=== PATIENT | female | born 1980 | race Caucasian/White ===

== ENCOUNTER → 2024-04-30 12:15 | Outpatient (CLI) | payer OTHER, SELFPAY ==
[2024-05-02 13:11] LABS: Candida species Positive (Negative); Gardnerella vaginalis Negative (Negative); Trichomoas vaginalis Negative (Negative)
== END ==
PROVIDERS: Visit Provider Obstetrics & Gynecology
DX: N76.1 Subacute and chronic vaginitis (principal)
CPT/HCPCS: 87480; 87510; 87660

== ENCOUNTER → 2024-05-08 12:35 | Outpatient (CLI) | payer OTHER, SELFPAY ==
--- NOTE | 2024-05-08 12:46 | DI.RAD.S_ITS ---
PROCEDURE: XR CERVICAL SPINE 2V OR 3V INDICATIONS: BACK NECK PAIN TECHNIQUE: Three views (s) of the cervical spine were acquired. COMPARISON: None. FINDINGS: Cervical spine curvature and alignment: Normal. Bones: There are no osseous abnormalities. Disc spaces: Normal in height without significant degeneration. Soft tissues: No soft tissue swelling, calcification or mass. IMPRESSION: Normal cervical spine. Dictated by: Andrea Sebastian M.D. on 05/09/2024 at 10:00 Approved by: Andrea Sebastian M.D. on 05/09/2024 at 10:00
--- NOTE | 2024-05-08 12:46 | DI.RAD.S_ITS ---
PROCEDURE: XR THORACIC SPINE 3V INDICATIONS: BACK NECK PAIN TECHNIQUE: 3 views of the thoracic spine were acquired. COMPARISON: None. FINDINGS: Thoracic spine curvature and alignment: Normal. Bones: There are no osseous abnormalities. Disc spaces: Normal in height without significant degeneration. Intervertebral foramen: Grossly normal in width. Soft tissues: No soft tissue swelling, calcification or mass. IMPRESSION: Normal thoracic spine Dictated by: Andrea Sebastian M.D. on 05/09/2024 at 10:03 Approved by: Andrea Sebastian M.D. on 05/09/2024 at 10:03
--- NOTE | 2024-05-08 12:46 | DI.RAD.S_ITS ---
PROCEDURE: XR LUMBAR SPINE 2-3V INDICATIONS: BACK NECK PAIN TECHNIQUE: 3 views of the lumbar spine were acquired. COMPARISON: None. FINDINGS: Lumbar spine curvature and alignment: Normal. Bones: There are no osseous abnormalities. Disc spaces: Normal in height without significant degeneration. Mild L5-S1 degenerative facet disease noted Intervertebral foramen: Grossly normal in width. Soft tissues: No soft tissue swelling, calcification or mass. IMPRESSION: Mild L5-S1 degenerative facet disease Dictated by: Andrea Sebastian M.D. on 05/09/2024 at 10:01 Approved by: Andrea Sebastian M.D. on 05/09/2024 at 10:01
== END ==
LOC: RAD 12:44
PROVIDERS: Referring Provider Naturopath; Visit Provider Naturopath
DX: M47.817 Spondylosis without myelopathy or radiculopathy, lumbosacral region (principal); G43.909 Migraine, unspecified, not intractable, without status migrainosus; M40.30 Flatback syndrome, site unspecified; C50.919 Malignant neoplasm of unspecified site of unspecified female breast; M54.2 Cervicalgia; M54.6 Pain in thoracic spine; M25.511 Pain in right shoulder; M25.512 Pain in left shoulder
CPT/HCPCS: 72040; 72072; 72100

== ENCOUNTER 2024-08-17 07:25 | Day surgery (SDC) | payer OTHER, SELFPAY ==
[2024-08-10 12:33] VITALS: BMI 22.8
--- NOTE | 2024-08-17 | PATH_ITS ---
[facility] Accession Number: [id number] No. of containers..01 Tissue . 01 Material submitted: . endometrium - ENDOMETRIAL CURETTINGS . 01 Diagnosis: ENDOMERIAL CURETTINGS: Polypoid fragments of weakly proliferative endometrial tissue; negative for endometrioid intraepithelial neoplasia or malignancy. [facility] 08/21/2024 1238 Local . 01 Electronically signed: . Roselia Jackson MD, Pathologist NPI- [id number] . 01 Gross description: . Received in formalin, labeled with two patient identifiers and endometrial curettings, are multiple estrella soft tissue fragments admixed with mucoid material received on fragmented Telfa paper, aggregating to 2.0 x 0.9 x 0.2 cm. Filtered and submitted in cassette A1. ([id number]) /[facility] 08/18/2024 1109 Local . 01 Pathologist provided ICD-10: N93.9 . 01 CPT . 982144 Specimen Comment: A courtesy copy of this report has been sent to [facility] Pathology Performed at: [address], [place], [place] [id number] MD Juan Francisco Esquivel MD Phone: [phone]
[2024-08-17] MEDS: LACTATED RINGERS 1,000 ML 42 ML IV (07:44)
[2024-08-17 07:48] VITALS: BMI 22.8
[2024-08-17 07:56] VITALS: BP 110/55; PULSE 68; RESP 18; TEMP 36.3; O2SAT 97
[2024-08-17] MEDS: ACETAMINOPHEN 325 MG TABLET 975 MG PO (08:01)
--- NOTE | 2024-08-17 08:18 | PM.PREOP ---
Pre-operative Note Interval Note History & Physical reviewed/Exam performed by Physician: Yes Changes to H&P: No H&P completed within 30 days and has changed as indicated here:: 08/01/24; pt no longer desires placement of LNG-IUD per recommendations of her primary oncology team, operative consent modified to hysteroscopy with D&C only ASA Class (for procedural sedation): II
--- NOTE | 2024-08-17 09:08 | PM.OP.1 ---
Operative Date/Time/Diagnoses Date of procedure: 08/17/24 Time of procedure: 09:08 Pre-op diagnosis: AUB Post-op diagnosis: same Procedure & Clinicians Procedure: hysteroscopy, dilation and curettage Same procedure as scheduled: Yes Indications: AUB on SERM therapy Surgeon: Michelle Zavala Click Yes if Unassisted: Yes Anesthesia Type: General Operative Notes Findings: normal external female genitalia, cervix; thickened anterior endometrium, bilateral ostia visualized Closure Type: not applicable Specimen(s): other (endometrial currettings ) Estimated Blood Loss (mL): 1 Procedure in detail: Pt was taken to the operating room, transferred to OR table and anesthesia was induced with placement of LMA.? Pt had her legs placed in Sudhir stirrups and an exam under anesthesia was performed. The patient was prepped and draped in a sterile fashion.? A time out was performed. ?The bladder was emptied via straight catheter in sterile fashion.? A sterile speculum was inserted into the vagina.? The cervix was visualized and grasped anteriorly using a single tooth tenaculum.? The uterus sounded to 8cm and the cervical os was serially dilated using Arcos dilators up to 17f to allow for passage of the hysteroscope.? The 5mm 30 degree hysteroscope was then inserted into the uterus with findings as noted.? The hysteroscope was removed and the uterus was sharply curetted until a gritty texture was noted throughout.? The tenaculum was removed and hemostasis was noted at insertion sites.? The speculum was removed and hemostasis was again noted to be excellent.? The patient then had her legs taken out of stirrups.? The patient tolerated the procedure well and without difficulty.? The patient was awakened from anesthesia and taken to PACU in stable condition. Complications: none Post-operative Condition: stable Disposition: PACU Plan for aftercare: anticipate dc to home pending routine postoperative recovery
--- NOTE | 2024-08-17 09:12 | SUR.OPER ---
OLD IN APPEARANCE BRUISING NOTED TO LEFT THIGH X2. YELLOW IN COLOR
[2024-08-17 09:16] VITALS: BP 90/49; PULSE 69; RESP 14; TEMP 36.1; O2SAT 93
[2024-08-17 09:21] VITALS: BP 86/50; PULSE 72; RESP 16; O2SAT 97
[2024-08-17 09:26] VITALS: BP 90/55; PULSE 67; RESP 13; O2SAT 95
[2024-08-17 09:36] VITALS: BP 90/49; PULSE 62; RESP 14; TEMP 36.1; O2SAT 98
[2024-08-17] MEDS: TRAMADOL 50 MG TABLET PO (10:10)
== END 2024-08-17 11:08 | disposition home or self-care (01) ==
PROVIDERS: Referring Provider Obstetrics & Gynecology; Visit Provider Obstetrics & Gynecology
PROC: 0UDB8ZZ Extraction of Endometrium, Via Natural or Artificial Opening Endoscopic (ICD-10-PCS; CPT 58558; principal; 2024-08-17 09:00)
DX: N84.0 Polyp of corpus uteri (principal)
CPT/HCPCS: 58558; J1100; J1885; J2250; J2405; J2704; J3010

== ENCOUNTER → 2024-09-20 13:32 | Outpatient (CLI) | payer OTHER, SELFPAY ==
--- NOTE | 2024-09-20 13:33 | DI.US.S_ITS ---
PROCEDURE: US PELVIC COMPLETE INDICATIONS: PELVIC DISCOMFORT X 1 WK. RECENT D C/ENDO BX. H/O BREAST CA. TECHNIQUE: Real-time scanning was performed of the pelvic organs, with image documentation. Additional endovaginal scanning was necessary due to incomplete visualization of the adnexal and endometrial structures by transabdominal scanning. COMPARISON: None. FINDINGS: Uterus: Uterus is anteverted and normal in size at 9.2 x 5.9 x 4.4 cm. The myometrium is homogeneous with normal vascularity. No dominant mass.. The endometrial contour is irregular. The endometrial stripe is 14.3 mm in thickness. A few tiny endometrial stripe cysts are present. Vascularity within the endometrium. Ovaries: The right ovary measures 2.8 x 2.7 x 2.1 cm, with a calculated ovarian volume of 7.9 cc. The left ovary measures 4.2 x 3.7 x 3.1 cm, with a calculated ovarian volume of 24.5 cc. There is a cystic mass measuring 3.0 cm within the left ovary demonstrating low level internal echoes as well as possible papillary projection into the lumen. No significant internal or peripheral vascular flow. The right ovary contains an involuting hemorrhagic cyst measuring 2.3 cm. No adnexal masses are seen. Other: No pathologic free abdominal or pelvic fluid. IMPRESSION: There is thickened endometrium with microcystic changes consistent with expected appearance post tamoxifen administration. 3.0 cm complex left ovarian cyst without vascular flow is probably hemorrhagic, although presence of one papillary projection is mildly suspicious. Follow-up in 2-3 months is recommended for reassessment. Probable involuting right ovarian hemorrhagic cyst. We strive to produce accurate, complete, and clear reports of imaging services. To assist us in improving patient care, this report was composed using standard report templates and voice recognition software. Therefore, it may contain abnormal punctuation, insertions and/or omissions. Occasional wrong-word or sound-alike substitutions may occur. Though we review the report and make efforts to correct it, we do recommend that the report be read carefully in proper context to recognize any text inaccuracies. Dictated by: Linda Starkey M.D. on 09/20/2024 at 16:42 Approved by: Linda Starkey M.D. on 09/20/2024 at 16:47
== END ==
PROVIDERS: Referring Provider Obstetrics & Gynecology; Visit Provider Obstetrics & Gynecology
DX: N83.292 Other ovarian cyst, left side (principal); N83.201 Unspecified ovarian cyst, right side; R93.89 Abnormal findings on diagnostic imaging of other specified body structures; R10.2 Pelvic and perineal pain
CPT/HCPCS: 76830; 76856

== ENCOUNTER → 2024-09-27 10:44 | Outpatient (CLI) | payer OTHER, SELFPAY ==
[2024-09-27 11:28] LABS: Appearance Urine UA CLEAR; Bilirubin Urine UA NEGATIVE (NEGATIVE); Color Urine UA YELLOW; Glucose Urine UA NEGATIVE (Negative); Ketones Urine UA NEGATIVE (NEGATIVE); Leukocyte Esterase Urine UA NEGATIVE (NEGATIVE); Nitrite Urine UA NEGATIVE (Negative); Occult Blood Urine UA NEGATIVE (Negative); Protein Urine UA NEGATIVE (Negative); Urobilinogen Urine UA 0.2 E.U./dL (0.2)
[2024-09-27 12:16] LABS: RBC Urine None Seen (0-5/HPF); Urine Volume 10mL (spun); WBC Urine 0-1/HPF (0-5/HPF)
[2024-09-27 12:17] LABS: Bacteria Urine None Seen; Culture Indicated Urine Cult Not Indicated; Squamous Epithelial Cell Urine None Seen (0-5/HPF)
[2024-09-30 10:10] LABS: Human Epididymis Prot 4 40.5 pmol/L (0.0-63.6)
== END ==
PROVIDERS: Referring Provider Obstetrics & Gynecology; Visit Provider Obstetrics & Gynecology
DX: N83.209 Unspecified ovarian cyst, unspecified side (principal); Z79.810 Long term (current) use of selective estrogen receptor modulators (SERMs); R93.89 Abnormal findings on diagnostic imaging of other specified body structures; Z85.3 Personal history of malignant neoplasm of breast; R30.0 Dysuria; D49.59 Neoplasm of unspecified behavior of other genitourinary organ
CPT/HCPCS: 36415; 81001; 86304; 86305

== ENCOUNTER → 2024-09-28 08:46 | Outpatient (CLI) | payer OTHER, SELFPAY ==
--- NOTE | 2024-09-28 08:47 | DI.US.S_ITS ---
PROCEDURE: US ABDOMEN COMPLETE INDICATIONS: Pain, ibs, nausea TECHNIQUE: Real-time scanning was performed of the abdominal and retroperitoneal organs, with image documentation. COMPARISON: None. FINDINGS: Liver: Liver is normal in size. Mildly increased liver parenchymal echotexture is seen, no discrete hepatic lesion. Gallbladder: No gallstones. No gallbladder wall thickening or pericholecystic fluid. No sonographic Guadalupe's sign. Biliary ducts: Intrahepatic bile ducts are non-dilated. Extrahepatic bile duct caliber measures 4.2 mm. Normal is 6-7 mm or less in diameter, or 10 mm or less post-cholecystectomy. Pancreas: Visualized portions of the pancreas are sonographically normal. Spleen: Spleen is normal in size and homogeneous in echotexture. Kidneys: Kidneys are normal in size and echotexture. Right kidney measures 11.1 cm long; left kidney measures 10.9 cm long. No hydronephrosis or nephrolithiasis. No solid masses. Aorta: Visualized aorta is normal in caliber at less than 3 cm. Iliacs: Proximal common iliac arteries are normal in caliber at less than 2.5 cm. IVC: Intrahepatic inferior vena cava is patent. Miscellaneous: No free abdominal fluid. IMPRESSION: 1. Mild hepatic steatosis, no discrete hepatic lesion. 2. Otherwise unremarkable ultrasound examination of abdomen. Dictated by: Akash Barba M.D. on 09/28/2024 at 10:32 Approved by: Akash Barba M.D. on 09/28/2024 at 10:33
== END ==
LOC: US 08:47
PROVIDERS: Referring Provider Naturopath; Visit Provider Naturopath
DX: K76.0 Fatty (change of) liver, not elsewhere classified (principal); R19.7 Diarrhea, unspecified; R63.0 Anorexia; R10.9 Unspecified abdominal pain
CPT/HCPCS: 76700

== ENCOUNTER → 2024-12-25 13:41 | Outpatient (CLI) | payer OTHER, SELFPAY ==
[2024-12-25 13:58] LABS: Urine Volume 10mL (spun)
[2024-12-25 13:59] LABS: Bacteria Urine None Seen; Culture Indicated Urine Cult Not Indicated; RBC Urine None Seen (0-5/HPF); Squamous Epithelial Cell Urine 1-5 /HPF (0-5/HPF); WBC Urine None Seen (0-5/HPF)
== END ==
PROVIDERS: Visit Provider Obstetrics & Gynecology
DX: Z01.818 Encounter for other preprocedural examination (principal); N93.9 Abnormal uterine and vaginal bleeding, unspecified
CPT/HCPCS: 81015

== ENCOUNTER 2025-01-08 15:36 | Inpatient (IN) | payer OTHER, SELFPAY ==
[2024-12-28 07:46] VITALS: BMI 22.7
[2025-01-07] VITALS (16 sets, daily range): BP systolic 108–128; BP diastolic 48–75; PULSE 66–115; RESP 12–19; TEMP 36.1–36.8; O2SAT 93–100; BMI 22.7
--- NOTE | 2025-01-07 | PATH_ITS ---
[facility] Accession Number: [id number] No. of containers..01 Tissue . 01 Material submitted: . uterus - CERVIX; UTERUS; BILATERAL FALLOPIAN TUBES; BILATERAL OVARIES . 01 Diagnosis: CERVIX, UTERUS, BILATERAL FALLOPIAN TUBES, BILATERAL OVARIES, TOTAL LAPAROSCOPIC HYSTERECTOMY AND BILATERAL SALPINGO-OOPHORECTOMY (UTERINE WEIGHT 91 GRAMS): Cervix with no significant abnormality. Endocervix with no significant abnormality. Disordered proliferative endometrium, one benign endometrial polyp (11mm, anterior wall); negative for endometrioid intraepithelial neoplasia or glandular atypia. Myometrium with no significant atypia. Uterine serosa with no significant atypia. Left and right fallopian tubes, complete cross-sections; negative for significant atypia. Benign paratubal cysts present (7 mm in greatest dimension). Left and right ovaries with no significant atypia. [facility] 01/10/2025 1257 Local . 01 Electronically signed: . Roselia Jackson MD, Pathologist NPI- [id number] . 01 Gross description: . Received in formalin with two identifiers and cervix, uterus, bilateral fallopian tubes, bilateral ovaries, is an intact uterus (91 grams, 8.9 cm superior to inferior, 5.8 cm medial to lateral, 3.9 cm anterior to posterior) with attached cervix (3.2 x 3.0 cm), left fallopian tube (4.8 x 0.5 cm), left ovary (4 grams, 3.7 x 1.7 x 1.0 cm), right fallopian tube (4.8 x 0.7 cm), and right ovary (3 grams, 3.0 x 1.8 x 1.1 cm). . The ectocervix is pink-estrella and wrinkled with a patulous os, 1.5 cm in diameter. The anterior margin is inked blue while the posterior margin is inked black. The serosa is estrella and smooth with no lesions identified. The endocervical canal has estrella, herringbone mucosa and measures 3.0 cm in length. The endometrial cavity is 2.7 cm from cornu to cornu, and 4.4 cm in length. The endometrium has a polypoid nodule on the anterior aspect measuring 1.1 x 1.0 x 0.9 cm. The remaining endometrium is red-pink, velvety, and averages 0.2 cm thick. The myometrium is estrella and trabecular measuring up to 2.1 cm in maximum thickness with no lesions identified. . Both tubes have violaceous, smooth serosa with cystic structures up to 0.7 cm in greatest dimension filled with estrella serous fluid. The lumen are stellate and unremarkable. Both ovaries have a estrella cerebriform external surface. The left ovary is inked blue and the right ovary is inked green. Sectioning reveals estrella to hemorrhagic ovarian parenchyma with no cysts or lesions identified. . Member Service Representative sections are submitted as follows: A1: Anterior cervix. A2: Posterior cervix. A3: Anterior full-thickness section. A4: Anterior full thickness section with endometrial nodule. A5: Posterior full-thickness section. A6: Left fallopian tube. A7: Left ovary. A8: Right fallopian tube. A9: Right ovary. ([id number]) /[facility] 01/08/2025 1233 Local . 01 Pathologist provided ICD-10: N93.9 . 01 CPT . 835487 Specimen Comment: A courtesy copy of this report has been sent to [facility] Pathology Performed at: [address] [address], [place], [place] [id number] MD Juan Francisco Esquivel MD Phone: [phone]
[2025-01-07] MEDS: ACETAMINOPHEN 325 MG TABLET 975 MG PO (08:50)
[2025-01-07] MEDS: LACTATED RINGERS 1,000 ML 42 ML IV ×2 (08:50→11:02)
[2025-01-07] MEDS: SCOPOLAMINE 1 PATCH TOP (08:53)
--- NOTE | 2025-01-07 09:12 | PM.PREOP ---
Pre-operative Note Interval Note History & Physical reviewed/Exam performed by Physician: Yes Changes to H&P: Yes H&P completed within 30 days and has changed as indicated here:: operative consent addended to include consideration of anterior/posterior vaginal repair pending intraoperative findings ASA Class (for procedural sedation): II
[2025-01-07] MEDS: CEFAZOLIN 2 GM/100 ML PREMIX 100 ML IV (09:55)
--- NOTE | 2025-01-07 10:25 | SUR.OPER ---
Lithotomy on padded OR bed. Hissop Pad Positioner under torso. Head on pillow, arms padded and tucked at sides. Legs secured in padded yellow fins stirrups.
[2025-01-07] MEDS: BUPIVACAINE 0.25% W/ EPI 30 ML VIAL INJ (10:46)
--- NOTE | 2025-01-07 12:52 | PM.OP.1 ---
Operative Date/Time/Diagnoses Date of procedure: 01/07/25 Time of procedure: 10:00 Pre-op diagnosis: AUB, SHERINE Post-op diagnosis: same Procedure & Clinicians Procedure: TLH/BSO, A/P repair Same procedure(s) as scheduled: Yes Indications: recurrent AUB, anterior/posterior vaginal defect Surgeon: Michelle Zavala University Relations Vice President: David Bella Anesthesia Type: General Operative Notes Findings: normal appearing uterus, bilateral fallopian tubes and ovaries small adhesion of descending colon to L adnexae suggestive but not diagnostic of underlying endometriosis stage 2 posterior vaginal defect stage 1 anterior vaginal defect Closure Type: primary Specimen(s): other (uterus, cervix, bilateral fallopian tubes, ovaries) Applied: none Estimated Blood Loss (mL): 50 Procedure in detail: The patient was taken to the operating room, placed on the operating table in the supine position and intubated with ETT.? The patient was then placed in the lithotomy position with her legs in Sudhir stirrups.? The patient was then examined under anesthesia with the above findings, then prepped and draped in a sterile fashion.? A norman catheter was placed.? Time out was performed. A sterile speculum was inserted into the vagina.? The uterus was sounded to 7cm and the medium VCare manipulator was placed in the standard fashion and the balloon was inflated.? Attention was then turned to the abdominal portion of the case. A 5mm incision was made infraumbilically and abdominal entry was achieved under direct visualization using the 5mm VisaPort trocar.? Abdomen was insufflated to 15mmHg.? Two lateral 5-mm ports were placed in a similar manner under direct visualization.? The uterus was anteverted and abdominal survey was noted with findings as noted above. The Powerseal was used to dissect and amputate the infundibulopelvic ligament 1.5cm proximal to the ovary. The IP was then ligated and transected using the Powerseal. The same procedure was then performed on the contralateral side. The mesosalpinx was divided at the level of the round ligament and the uterine arteries were skeletonized bilaterally, and with noted blanching of the uterine corpus the uterine arteries were ligated and dissected.? A bladder flap was developed and the bladder reflection was ensured to be below the level of the planned colpotomy. The monopolar hook was then used to incise the cervicouterine stroma until the colpotomy cup was visualized.? Using the colpotomy cup as a guide the incision was carried circumferentially using monopolar energy with amputation of the specimen.? Noted brisk bleeding from peripheral cervicouterine arterines was observed and hemostasis was achieved using the powerseal.? The uterus and bilateral fallopian tubes were then removed via the vagina under direct visualization.? A sterile glove impregnated with sponge was placed in the vagina to maintain pneumoperitoneum. The cuff was inspected and noted to be hemostatic and attention was then turned to the vaginal portion of the case. A large weighted speculum was placed in the vagina. The vaginal apex was identified and the anterior vaginal mucosa was infiltrated with 10cc 0.25% lidocaine with epinephrine for purposes of hydro-dissection coupled with local hemostasis.? The vaginal mucosa was incised in the midline from the apex to the UV angle.? The vaginal mucosa was sharply dissected off of the endopelvic fascia to the sidewall.? The pubourethral fascia at the UV angle was identified and a Ritika plication stitch was placed.? The anterior endopelvic fascia adjacent to the pelvic sidewall was serially plicated with 0-0 vicryl in a distal to proximal fashion with noted excellent elevation of the bladder.? The observed reduction of cystocele the excess vaginal mucosa was trimmed, after which the incision was closed primarily with 2-0 vicryl in a running fashion. The posterior vaginal mucosa was infiltrated with 11ml of 0.25% lidocaine with epinephrine.? A V-incision was made at the posterior fourchette.? The posterior vaginal mucosa was incised vertically from hymen to the apex and the mucosa was dissected off the endopelvic fascia.? Rectal exam performed delineating borders of defect; glove changed.? The posterior endopelvic fascia was then serially plicated using 0-0 vicryl with reduction of the rectocele.? The excess vaginal mucosa was then trimmed and reapproximated using 2-0 vicryl in interrupted fashion.? Rectal exam was once again performed confirming absence of suture within the rectal mucosa and satisfactory repair of the defect. Moistened vaginal packing was placed for further hemostasis. Gloves changed and attention once again returned to abdominal portion of the case. The abdomen was re-insufflated and the vaginal cuff and associated wound beds were inspected and noted to be hemostatic. The pelvis was suction irrigated of all clot and debris. Insufflation was released and laparoscopic trocars were removed under direct visualization. The skin of the trocar incisions was closed using 4-0 monocryl followed by application of dermabond. All counts correct x2. Patient was extubated and taken to recovery in stable condition without complication. Complications: none Post-operative Condition: stable Disposition: Acute Care Plan for aftercare: anticipate dc to home POD1 pending clinical course and recovery
[2025-01-07] MEDS: ONDANSETRON 4 MG/2 ML INJ IV (13:34)
[2025-01-07] MEDS: hydrOXYzine 50 MG/ML INJ IM (13:34)
[2025-01-07] MEDS: HYDROMORPHONE 1 MG INJ IV ×2 (13:42→13:47)
[2025-01-07] MEDS: OXYCODONE IR 5 MG TABLET PO ×2 (13:44→20:34)
--- NOTE | 2025-01-07 15:20 | PC.NURSE ---
Patient brought up from PACU to room 212, oriented to room and call light. Patient pleasant and drowsy. Patient's Michael came to bedside. VSS. Corado in place draining clear yellow urine. Lap sites to abdomen are dry with dermbond and no bleeding or drainage noted. Patient c/o of dry mouth, sipping on ice water at bedside. Call light placed within reach. Continue to monitor.
[2025-01-07] MEDS: ACETAMINOPHEN 325 MG TABLET 650 MG PO ×2 (16:16→20:34)
[2025-01-07] MEDS: KETOROLAC 30 MG/ML VIAL IV ×2 (17:37→22:15)
[2025-01-07] MEDS: TAMOXIFEN 10 MG TABLET 20 MG PO (20:35)
[2025-01-08] MEDS: ACETAMINOPHEN 325 MG TABLET 650 MG PO ×4 (03:37→20:08)
[2025-01-08] MEDS: OXYCODONE IR 5 MG TABLET PO ×3 (03:38→21:16)
[2025-01-08 04:00] VITALS: BP 116/63; PULSE 65; RESP 16; TEMP 36.6; O2SAT 100
[2025-01-08] MEDS: KETOROLAC 30 MG/ML VIAL IV ×2 (04:54→11:30)
--- NOTE | 2025-01-08 07:50 | P.DS_ITS ---
History of Present Illness History of Present Illness Date Patient Seen: 01/08/25 Time Patient Seen: 07:15 Date of Onset of Symptoms: 01/07/25 Chief complaint: OPB Narrative: Pt states she is feeling well, endorses adequate pain control with minimal PO analgesia. Tolerating diet, + flatus. Norman catheter and vaginal packing removed at time of interview Discharge Providers Provider Date of admission: 01/07/25 Discharge Date: 01/08/25 Primary care physician: Princess Taylor, [facility] Discharge provider: Michelle Zavala MD Summary Hospital Course Discharge Diagnosis: s/p TLH/BSO with AP repair Hospital Course: 44yo with personal h/o breast cancer on long-term SERM therapy with chronic AUB of non-malignant etiology presented to facility for scheduled procedure. Patient underwent procedure as scheduled without complication. Postoperative course was uncomplicated and patient was meeting all discharge milestones on morning of POD1. Pt discharged to home with routine activity restrictions, outpatient f/u in office as scheduled. Status at Discharge Cognitive/behavioral status at discharge: oriented Functional status at discharge: independent ambulation Overall status at discharge: patient is back to baseline Time Spent with Patient Time spent: Less than 30 minutes Exam Vital Signs (past 8 hours): - 01/08/25 04:00 Temperature 97.8 F Pulse Rate 65 Respiratory Rate 16 Blood Pressure 116/63 Pulse Oximetry 100 Oxygen Flow Rate 0 Oxygen Delivery Method Room Air Oxygen Flow Rate 0 Const General: cooperative, healthy appearing, comfortable and well developed Nutritional Appearance: average body habitus Orientation: alert, awake and oriented x3 Limitations: mental status not altered Resp Effort & Inspection: normal respiratory effort and able to speak in complete sentences Cardio Pulses: normal peripheral pulses GI Palpation: soft Other: trocar insertion sites well approximated, mild ecchymoses without induration, c/d/i with dermabond in place External Female Exam: normal external appearance Other: vaginal packing removed, approx 50% saturated old blood norman catheter removed, 300cc clear urine in bag Skin General: no rashes or lesions noted Neuro General: patient alert, patient awake and patient oriented x3 Extrem General: normal to inspection Psych Mental Status: mental status grossly normal Judgment: judgment good [facility] Medical History (Updated 12/28/24 @ 07:50 by Michelle Mcintosh RN) Nausea and vomiting after administration of anesthetic agent Ovarian neoplasm Ovarian cyst Abnormal uterine bleeding (AUB) SERM use (selective estrogen receptor modulator) History of breast cancer in female Premature surgical menopause Vaginitis Surgical History (Updated 12/28/24 @ 07:50 by Michelle Mcintosh RN) History of hysteroscopy (08/17/24) History of mastectomy Social History household members: spouse Smoking Status: Former smoker alcohol intake: current Discharge Assessment & Plan Assessment and Plan Assessment: 44yo POD1 s/p TLH/BSO with AP repair Excellent postoperative course dc to home with routine precautions, f/u in office as scheduled Discharge Plan Discharge Plan Patient Disposition: Home Provider Discharge Comment: Nothing in the vagina for 4 weeks. No tampons, intercourse, douching, swimming in fresh water/pools/hot tubs. Tub baths are okay after the first 2 weeks if the tub is cleaned well first. Discharge orders & Medications Discharge Orders: Discharge (Order); Ordered 01/08/25 Ordered By: Michelle Zavala Prescriptions: New ibuprofen 800 mg tablet 800 mg PO Q8H Qty: 60 0RF sennosides [Senna Laxative] 8.6 mg tablet 8.6 mg PO BEDTIME PRN (Reason: constipation) Qty: 14 0RF fluconazole 150 mg tablet 150 mg PO Q3D PRN (Reason: itching) Qty: 7 0RF tramadol 50 mg tablet 50 mg PO Q8H PRN (Reason: pain) Qty: 20 0RF acetaminophen 500 mg tablet 1,000 mg PO Q8HR Qty: 60 0RF oxycodone 5 mg tablet 5 mg PO Q8H PRN (Reason: pain) Qty: 10 0RF Continued estradiol [Estrace] 0.01 % (0.1 mg/gram) cream 1 g vaginal .COMPLEX Qty: 42.5 6RF Rx Instructions: 1 gm daily for 14 days then decrease frequency to twice weekly thereafter citalopram 40 mg tablet 40 mg PO DAILY tamoxifen 20 mg tablet 20 mg PO DAILY naratriptan 2.5 mg tablet PO ondansetron 8 mg tablet,disintegrating PO lorazepam 0.5 mg tablet 0.5 mg PO DAILY Veozah 45 mg tablet 45 mg PO DAILY fluconazole 150 mg tablet 150 mg PO QWEEK Qty: 24 0RF tramadol 50 mg tablet 50 mg PO Q8H PRN (Reason: pain) Qty: 4 0RF ibuprofen 800 mg tablet 800 mg PO Q8H PRN (Reason: pain) Qty: 10 0RF Follow up/Referrals: Princess Taylor, [facility] [Primary Care Provider, Naturopathy] Diet/Activity/Treatments Diet: Diet as Tolerated and Regular Skin/Wound/Dressing Care Report to your healthcare provider any signs of infection, such as:: chills, fever, increased pain, unusual drainage and unusual redness Visit Report/Discharge Packet Stand Alone Forms: Patient Portal/API Print Language: Hungarian Discharge Data Primary Care Provider: Princess Taylor Attending Provider: Michelle Zavala VTE Deep Vein Thrombosis/Pulmonary Embolism Present on Admission: No I[facility] PROFEE Charge Codes Discharge inpatient/observation: [id number]
[2025-01-08 08:00] VITALS: BP 120/58; PULSE 63; RESP 16; TEMP 36.9; O2SAT 98
[2025-01-08] MEDS: CITALOPRAM 10 MG TABLET 40 MG PO (08:22)
[2025-01-08] MEDS: DOCUSATE 100 MG CAPSULE PO (09:59)
[2025-01-08] MEDS: BISACODYL 10 MG SUPP PR (12:14)
--- NOTE | 2025-01-08 13:06 | CM.DANOTE ---
Initial DCP Assessment Visit Note Reviewed EMR and team rounds for pt's medical status and updates. Went to meet with pt in the room, however she was receiving personal care at the time of this visit. Pt lives independently in her own home w/husand and family on [address]. Her will also transport her home later this afternoon, as she has been medically cleared for home d/c. No CM d/c needs are identified at this time. Payor: Curtis JACOBSEN Attending: Dr. Zavala Pt is a 44 year-old F post-op day 1 from a lap hysterectomy with posterior/anterior repair due to chronically abnormal uterine and vaginal bleeding. She has done well postoperatively with good pain control. Pt levy d/c after she is able to void urine. She will f/u with Dr. Zavala for OP f/u. Spouse is bedside. Discharge Planning/Care Management CM Discharge Assessment Start: 01/07/25 08:45 Freq: Status: Active Protocol: Document 01/08/25 13:04 DPL (Rec: 01/08/25 13:06 DPL [id number]) Discharge Planning Assessment Assigned Discharge MARISABEL Sher Marble Mechanic Helper Advance Directives? No Advance Directives No on File History Provided By Patient,Significant Other,Medical Record Has Patient been No admitted in last 30 days? Prior Living House Arrangements Household Members spouse Type of Drives own vehicle transporation used prior to admit Independent with ADL Yes 's Is patient alert and Yes oriented? Caregiver for Yes Another Comment No identified home d/c needs indicated at this time. Barriers to No Discharge Discharge Plan Home Referrals Initiated None needed Whiteboard Updated Yes in Patient Room with name and ext. 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 Primary Language Kazakh Preferred Language Kazakh Commissary Clerk Required No Height 170.18 cm Weight 65.771 kg Body Mass Index (BMI 22.7 ) Hx Anesthesia Yes: PONV Reactions Hx Family Anesthesia No Reaction Hx Malignant No Hyperthermia Hx Blood Transfusion No Reaction Anesthesia Review No Requested Material Man No alcohol intake current alcohol intake holidays/special occasions only frequency Smoking Status Former smoker Substance Use Type [ marijuana #R] History of Falling ( No Recent or History of ) Patient is No completely paralyzed or completely immobile Mental Status Oriented to own ability Is patient on oxygen No ? Hx Sleep Apnea No Currently Taking a No Beta Lien Anti-Coagulant No Therapy Has a Saw Filer No Cardiac Testing No Hx Pacemaker/ICD No Pacemaker Rep No Required? Cardiac Clearance No Received Urinary Catheter No Present Hx Urinary Self No Catheterization Diabetes No Patient No Lactating No Presence of External No or Internal Medical Devices Received a COVID Yes vaccine? Marital Status Lives With spouse Patient Discharge Return Home Plan Description Comment Lives on [place] [address] Emergency Contact Michael Josegarett - Name Emergency Contact [phone] Phone Number Advance Directives? No Advance Directives No on File
--- NOTE | 2025-01-08 13:58 | PC.NURSE ---
Shift note: 1200 patient unable to void, increasing discomfort and pain. C/O of constipation and pressure. bladder scan showed 695 ml. Provider notified- new orders obtained- straight cath and suppository. 825ml out with straight cath. If unable to void and bladder scan shows greater than [address] indwelling norman catheter and cancel discharge.
[2025-01-08 14:00] VITALS: BP 125/78; PULSE 71; RESP 15; TEMP 37; O2SAT 100
[2025-01-08 14:13] LABS: Add Manual Diff / Slide Review NO; Hematocrit 31.0 % (36-46); Hemoglobin 10.8 g/dL (12.0-16.0); Lymphocytes Absolute Auto 2600 /uL (1100-4500); Mean Corpuscular HGB Conc 34.8 % (30-36); Mean Corpuscular Hemoglobin 31.9 PG (26-34); Mean Corpuscular Volume 91.8 fL (80-100); Platelet Count 166 X10^3/uL (150-400)
[2025-01-08] MEDS: FLEETS ENEMA 1 EACH PR ×2 (14:38→17:56)
--- NOTE | 2025-01-08 17:51 | P.EN_ITS ---
Event Note Date Patient Seen: 01/08/25 Time Patient Seen: 16:30 Event Note (Rapid Response, Code, or fall): Notified per RN at 1140am (after AM rounds) of pt inability to void s/p norman catheter removal at 0730. Bladder scan resulted significant for ~690cc, pt additionally reported intense need to have a bowel movement. Verbal order for straight catheterization (return of 800cc clear urine). Pt remained unable to void and repeat bladder scan 2h after straight cath again significant for >600cc and norman catheter replaced. Interval CBC without evidence of significant anemia, VSS/afebrile. Discharge order removed from system and order for inpatient status placed per care coordination. On my interview this afternoon pt is resting comfortably in bed. She states her pain remains well controlled but the sensation of needing to have a bowel movement is intense and consistent with intraoperative findings of significant stool burden (digital impaction performed at time of EUA given degree of stool burden). We discussed that her CBC is reassuring for evidence of continued bl eeding, however as she [place] resident I recommend additional overnight observation with norman catheter in place. We will plan to repeat voiding trial in AM. I suspect that she is having some localized edema of the urethra secondary to anterior repair that may be making it difficult to void, low risk for injury as no sling was placed however also on differential. We discussed that if she is unable to void in the AM then she will be likely discharged to home with norman catheter/leg bag with planned interval reassessment in the office in 3-5d. Repeat CBC ordered for AM in addition to repeat enema and milk of mag per pt request. Plan of care reviewed with RN, pt in agreement with recommendation to increase ambulation, PO warm fluids/gum to assist with bowel movement. Notify provider with any significant concerns/change in clinical presentation overnight.
[2025-01-08] MEDS: IBUPROFEN 600 MG TABLET PO ×2 (17:55→22:57)
[2025-01-08 18:00] VITALS: BP 126/72; PULSE 67; RESP 12; TEMP 36.4; O2SAT 99
[2025-01-08 20:00] VITALS: BP 107/67; PULSE 62; RESP 15; TEMP 37.2; O2SAT 99
[2025-01-08] MEDS: MAGNESIUM HYDROXIDE 30 ML UDC PO (20:08)
[2025-01-08] MEDS: SODIUM CHLORIDE 0.9% FLUSH 10 ML IV (20:08)
[2025-01-08] MEDS: TAMOXIFEN 10 MG TABLET 20 MG PO (20:09)
[2025-01-09] VITALS: BP 104/54; PULSE 66; RESP 14; TEMP 37.2; O2SAT 97
[2025-01-09] MEDS: ACETAMINOPHEN 325 MG TABLET 650 MG PO ×3 (02:52→14:28)
[2025-01-09 04:00] VITALS: BP 91/49; PULSE 60; RESP 15; TEMP 36.6; O2SAT 99
[2025-01-09] MEDS: IBUPROFEN 600 MG TABLET PO ×2 (04:44→11:09)
[2025-01-09 06:30] LABS: Add Manual Diff / Slide Review NO; Hematocrit 31.5 % (36-46); Hemoglobin 10.9 g/dL (12.0-16.0); Lymphocytes Absolute Auto 2500 /uL (1100-4500); Mean Corpuscular HGB Conc 34.5 % (30-36); Mean Corpuscular Hemoglobin 31.8 PG (26-34); Mean Corpuscular Volume 92.2 fL (80-100); Platelet Count 168 X10^3/uL (150-400)
[2025-01-09 06:43] LABS: Alanine Aminotransferase 17 IU/L (<35); Albumin 3.3 g/dL (3.5-5.0); Albumin Globulin Ratio 1.3 (1.0-2.8); Alkaline Phosphatase 40 U/L (38-126); Blood Urea Nitrogen 9 mg/dL (7-17); Calcium 8.8 mg/dL (8.4-10.2); Carbon Dioxide 31 mmol/L (22-32); Chloride 108 mmol/L (98-107); Estimated Glomerular Filt Rate > 60 mL/min (>60); Globulin 2.6 g/dL (1.7-4.1); Glucose 91 mg/dL (70-99); HEMOLYSIS < 15 (0-50); Potassium 4.7 mmol/L (3.4-5.1); Sodium 140 mmol/L (137-145); Total Protein 5.9 g/dL (6.3-8.2)
[2025-01-09 08:00] VITALS: BP 103/58; PULSE 60; RESP 15; TEMP 36.9; O2SAT 99
[2025-01-09] MEDS: MAGNESIUM HYDROXIDE 30 ML UDC PO (08:27)
[2025-01-09] MEDS: CITALOPRAM 10 MG TABLET 40 MG PO (09:47)
[2025-01-09] MEDS: DOCUSATE 100 MG CAPSULE PO (11:58)
[2025-01-09] MEDS: OXYCODONE IR 5 MG TABLET PO (11:58)
[2025-01-09 13:00] VITALS: BP 113/63; PULSE 64; RESP 14; TEMP 36.6; O2SAT 99
--- NOTE | 2025-01-09 14:27 | PM.DS.IH.1 ---
History of Present Illness History of Present Illness Date Patient Seen: 01/09/25 Time Patient Seen: 08:00 Chief complaint: OPB Narrative: Pt states that she is feeling ok this AM. Pain well controlled. Remains with sensation of needing to defecate. Labs drawn this AM stable without interval change in h/h, preserved creatinine 0.89. Reviewed plan to remove norman for repeat voiding trial, if unable to void thereafter will plan for return of catheter with discharge to home and outpatient f/u for repeat voiding trial in office. Pt in agreement with plan of care. Discharge Providers Provider Date of admission: 01/08/25 15:36 Discharge Date: 01/09/25 Primary care physician: Princess Taylor, [facility] Discharge provider: Michelle Zavala MD Summary Hospital Course Discharge Diagnosis: s/p TLH/BSO/AP repair Hospital Course: 44yo with personal h/o breast cancer on long-term SERM therapy with chronic AUB of non-malignant etiology presented to facility for scheduled procedure. Patient underwent procedure as scheduled without complication. Postoperative course was complicated by unanticipated delay in return of spontaneous voiding function. Patient discharge order was placed in AM of POD1, secondarily notified by RN late morning of pt's inability to void (see event note). Repeat voiding trial on POD2 also unsuccessful and pt discharged to home with norman in place, planned outpatient f/u office 01/10 for repeat voiding trial. Pt discharged with PO tamsulosin/pyridium as well as low-dose macrobid for UTI ppx. Routine precautions reviewed. Status at Discharge Overall status at discharge: patient is back to baseline Time Spent with Patient Time spent: Greater than 30 minutes Exam Vital Signs (past 8 hours): - 01/09/25 08:00 01/09/25 13:00 Temperature 98.5 F 97.9 F Pulse Rate 60 64 Respiratory Rate 15 14 Blood Pressure 103/58 L 113/63 Pulse Oximetry 99 99 Oxygen Flow Rate 0 0 Oxygen Delivery Method Room Air Oxygen Flow Rate 0 Const General: cooperative, healthy appearing and comfortable Nutritional Appearance: average body habitus Orientation: alert, awake and oriented x3 Limitations: mental status not altered Resp Effort & Inspection: normal respiratory effort and able to speak in complete sentences Cardio Pulses: normal peripheral pulses GI Palpation: soft Percussion: tympanic to percussion Auscultation: normal bowel sounds Rectal Exam: visual inspection normal Other: digital exam of vagina, suture palpates intact Skin General: no rashes or lesions noted Neuro General: patient alert, patient awake and patient oriented x3 Extrem General: normal to inspection Psych Mental Status: mental status grossly normal Judgment: judgment good Objective Labs 01/09/25 05:20 01/09/25 05:20 Labs: Laboratory Results - last 24 hr 01/09/25 05:20 WBC 4.9 RBC 3.42 L Hgb 10.9 L Hct 31.5 L MCV 92.2 MCH 31.8 MCHC 34.5 RDW 12.5 Plt Count 168 Neut % (Auto) 40.6 L D Lymph % (Auto) 51.0 H D [place] % (Auto) 6.4 Eos % (Auto) 1.4 L Baso % (Auto) 0.6 Neut # (Auto) 2000 Lymph # (Auto) 2500 [place] # (Auto) 300 Eos # (Auto) 100 Baso # (Auto) 0 Sodium 140 Potassium 4.7 Chloride 108 H Carbon Dioxide 31 BUN 9 Creatinine 0.89 Estimated GFR > 60 BUN/Creatinine Ratio 10.1 Glucose 91 Calcium 8.8 Total Bilirubin 0.4 AST 36 ALT 17 Alkaline Phosphatase 40 Total Protein 5.9 L Albumin 3.3 L Globulin 2.6 Albumin/Globulin Ratio 1.3 PFSH Medical History (Updated 12/28/24 @ 07:50 by Michelle Mcintosh RN) Nausea and vomiting after administration of anesthetic agent Ovarian neoplasm Ovarian cyst Abnormal uterine bleeding (AUB) SERM use (selective estrogen receptor modulator) History of breast cancer in female Premature surgical menopause Vaginitis Surgical History (Updated 12/28/24 @ 07:50 by Michelle Mcintosh RN) History of hysteroscopy (08/17/24) History of mastectomy Social History household members: spouse Smoking Status: Former smoker alcohol intake: current Discharge Assessment & Plan Assessment and Plan Assessment: 44yo POD2 s/p TLH/BSO with AP repair, delayed return of urine function dc to home with norman in place macrobid PO for abx ppx, tamsulosin/pyridium f/u in office 01/10 for repeat voiding trial routine precautions reviewed Discharge Plan Discharge Plan Patient Disposition: Home Provider Discharge Comment: Nothing in the vagina for 4 weeks. No tampons, intercourse, douching, swimming in fresh water/pools/hot tubs. Tub baths are okay after the first 2 weeks if the tub is cleaned well first. Discharge orders & Medications Prescriptions: New sennosides [Senna Laxative] 8.6 mg tablet 8.6 mg PO BEDTIME PRN (Reason: constipation) Qty: 14 0RF acetaminophen 500 mg tablet 1,000 mg PO Q8HR PRN (Reason: pain) Qty: 60 0RF tamsulosin [Flomax] 0.4 mg capsule 0.4 mg PO DAILY Qty: 7 0RF nitrofurantoin macrocrystal 100 mg capsule 100 mg PO BEDTIME Qty: 7 0RF Rx Instructions: must administer with a meal/food phenazopyridine [Pyridium] 100 mg tablet 100 mg PO TID PRN (Reason: pain) Qty: 20 0RF Continued estradiol [Estrace] 0.01 % (0.1 mg/gram) cream 1 g vaginal .COMPLEX Qty: 42.5 6RF Rx Instructions: 1 gm daily for 14 days then decrease frequency to twice weekly thereafter citalopram 40 mg tablet 40 mg PO DAILY tamoxifen 20 mg tablet 20 mg PO DAILY naratriptan 2.5 mg tablet 2.5 mg PO Q4H PRN (Reason: migraine headache) Rx Instructions: TAKE 1 TABLET MAY REPEAT IN 4 HOURS IF NEEDED. DO NOT EXCEED 2 TABLETS IN 24 HOURS ondansetron 8 mg tablet,disintegrating 8 mg PO BID PRN (Reason: nausea and vomiting) lorazepam 0.5 mg tablet 0.5 mg PO DAILY Veozah 45 mg tablet 45 mg PO DAILY fluconazole 150 mg tablet 150 mg PO QWEEK Qty: 24 0RF tramadol 50 mg tablet 50 mg PO Q8H PRN (Reason: pain) Qty: 4 0RF ibuprofen 800 mg tablet 800 mg PO Q8H PRN (Reason: pain) Qty: 10 0RF No Action metronidazole 0.75 % cream 1 applic topical BID omeprazole 20 mg capsule,delayed release(DR/EC) 20 mg PO BIDAC Follow up/Referrals: Princess Taylor, [facility] [Primary Care Provider, Naturopathy] Diet/Activity/Treatments Diet: Diet as Tolerated and Regular Skin/Wound/Dressing Care Report to your healthcare provider any signs of infection, such as:: chills, fever, increased pain, unusual drainage and unusual redness Visit Report/Discharge Packet Stand Alone Forms: Patient Portal/API Discharge Data Primary Care Provider: Princess Taylor VTE Deep Vein Thrombosis/Pulmonary Embolism Present on Admission: No IH PROFEE Charge Codes Discharge inpatient/observation: [id number]
[2025-01-09] MEDS: NITROFURANTOIN ER 100 MG CAPSULE PO (14:46)
[2025-01-09] MEDS: PHENAZOPYRIDINE 100 MG TABLET PO (14:46)
== END 2025-01-09 16:50 | disposition home or self-care (01) | DRG 743 ==
LOC: OR 16:21 → AC 16:22
PROVIDERS: Admitting Provider Obstetrics & Gynecology; PCP Naturopath; Referring Provider Obstetrics & Gynecology; Visit Provider Obstetrics & Gynecology
PROC: 0UT94ZZ Resection of Uterus, Percutaneous Endoscopic Approach (ICD-10-PCS; principal; 2025-01-07 10:00)
PROC: 0UT2FZZ Resection of Bilateral Ovaries, Via Natural or Artificial Opening With Percutaneous Endoscopic Assistance (ICD-10-PCS; 2025-01-07 10:00)
DX: N93.9 Abnormal uterine and vaginal bleeding, unspecified (principal); N81.10 Cystocele, unspecified; N81.6 Rectocele; R33.9 Retention of urine, unspecified; Z87.891 Personal history of nicotine dependence; Z85.3 Personal history of malignant neoplasm of breast; Z79.810 Long term (current) use of selective estrogen receptor modulators (SERMs)
CPT/HCPCS: 36415; 80053; 81025; 85025; J0690; J1100; J1171; J1885; J2250; J2405; J2704; J3010; J3410; J3490